=== PATIENT | female | born 1985 | race Two or more races ===

== ENCOUNTER 2017-05-13 16:47 | Emergency (ER) | payer SELFPAY ==
[~2017-05-13] VITALS: Ht 162.6 cm; Wt 81.6 kg
[2017-05-13] MEDS ORDERED: ONDANSETRON PF 4 MG/2 ML VIAL. IV ONE (17:30)
[2017-05-13] MEDS ORDERED: IV NORMAL SALINE 1000ML BAG 1,000 ML IV ONE (17:30)
[2017-05-13] MEDS ORDERED: fentaNYL PF VIAL 100 MCG/2 ML VIAL IV ONE (17:30)
[2017-05-13 17:31] LABS: BASO % 1 % (0-3); EOS % 5 % (0-3); HEMATOCRIT 33.5 % (36.0-47.0); HEMOGLOBIN 11.6 g/dL (12.0-15.5); LYMPH # 2.8 x10^3/uL (1.0-4.8); LYMPH % 38 % (24-48); MEAN CORPUSCULAR HEMOGLOBIN 29 pg (25-35); MEAN CORPUSCULAR HGB CONC 35 g/dL (31-37); MEAN CORPUSCULAR VOLUME 85 fL (79-100); MONO % 6 % (0-9); NEUT % 51 % (31-73); PLATELET COUNT 170 x10^3/uL (140-400); RED BLOOD COUNT 3.96 x10^6/uL (3.50-5.40); RED CELL DISTRIBUTION WIDTH 14.3 % (11.5-14.5); WHITE BLOOD COUNT 7.4 x10^3/uL (4.0-11.0)
[2017-05-13 17:32] LABS: BILIRUBIN,URINE NEGATIVE (NEG); GLUCOSE,URINE NEGATIVE (NEG); NITRITE,URINE NEGATIVE (NEG); PROTEIN,URINE NEGATIVE (NEG-TRACE); UROBILINOGEN,URINE 0.2 mg/dL (0.2 mg/dL)
[2017-05-13 17:39] LABS: BACTERIA,URINE FEW /HPF (0-FEW); RBC,URINE 0 /HPF (0-2); SQUAMOUS EPITHELIAL CELL,UR MANY /LPF; WBC,URINE RARE /HPF (0-4)
[2017-05-13 17:45] LABS: CALCIUM 8.8 mg/dL (8.5-10.1); CREATININE 0.8 mg/dL (0.6-1.0); GFR 83.7
[2017-05-13 17:50] LABS: ALBUMIN 3.6 g/dL (3.4-5.0); ALBUMIN/GLOBULIN RATIO 0.9 (1.0-1.7); TOTAL BILIRUBIN 0.3 mg/dL (0.2-1.0); TOTAL PROTEIN 7.7 g/dL (6.4-8.2)
--- NOTE | 2017-05-13 18:12 | ED.ADGEN ---
Past Medical History Past Medical History: No Pertinent History Past Surgical History: Appendectomy Alcohol Use: None Drug Use: None Adult General Chief Complaint Chief Complaint: ABDOMINAL PAIN HPI HPI Patient is a 31 year old female who presents with left sided pelvic pain for 2 days. Pain is worse with palpation and bowel movements. Patient reports constipation. Denies bloody stools or mucous in stools. No fever chills, nausea vomiting and sweats. Patient's last menstrual period was 4 weeks ago. Patient reports possibility of . No urinary frequency urgency or dysuria. No hematuria or history of kidney stones. Patient denies street of symptomatic ovarian cysts. No prior abdominal surgeries. Review of Systems Review of Systems ROS as per HPI. Current Medications Current Medications Current Medications Medications (Trade) Dose Ordered Sig/Boris Start Time Stop Time Status Last Admin Dose Admin Fentanyl Citrate (Fentanyl 2ml Vial) 50 mcg 1X ONCE 05/13/17 17:30 05/13/17 17:31 DC 05/13/17 17:45 50 MCG Ketorolac Tromethamine (Toradol) 30 mg 1X ONCE 05/13/17 18:15 05/13/17 18:16 DC 05/13/17 18:15 30 MG Ondansetron HCl (Zofran) 4 mg 1X ONCE 05/13/17 17:30 05/13/17 17:31 DC 05/13/17 17:45 4 MG Sodium Chloride 1,000 ml @ 1,000 mls/hr 1X ONCE 05/13/17 17:30 05/13/17 18:29 DC 05/13/17 17:45 1,000 MLS/HR Allergies Allergies Allergies Coded Allergies Type Severity Reaction Last Updated Verified Penicillins Allergy Mild hives 10/15/13 Yes acetaminophen Allergy Mild hives 10/15/13 Yes hydrocodone bit Allergy Mild hives 10/15/13 Yes Physical Exam Physical Exam Constitutional: Well developed, well nourished, no acute distress, non-toxic appearance. HENT: Normocephalic, atraumatic, bilateral external ears normal, oropharynx moist, no oral exudates, nose normal. Eyes: PERRLA, EOMI, conjunctiva normal. Neck: Normal range of motion, no tenderness. Cardiovascular:Heart rate regular rhythm, no murmur. Lungs & Thorax: Bilateral breath sounds clear to auscultation. Abdomen: Bowel sounds normal, soft, no tenderness. Skin: Warm, dry, no erythema, no rash. Back: No tenderness. Extremities: No tenderness. Neurologic: Alert and oriented X 3, normal motor function, normal sensory function, no focal deficits noted. Psychologic: Affect normal, judgement normal, mood normal. Current Patient Data Vital Signs Vital Signs Date Time Temp Pulse Resp B/P (MAP) Pulse Ox O2 Delivery O2 Flow Rate FiO2 05/13/17 17:45 16 98 Room Air 05/13/17 16:50 98.0 69 142/85 (104) 98.0 Lab Values Laboratory Tests Test 05/13/17 16:13 05/13/17 16:53 05/13/17 16:55 POC Urine HCG, Qualitative Hcg negative (Negative) Urine Collection Type Unknown Urine Color Yellow Urine Clarity Clear Urine pH 7.0 Urine Specific [place] 1.025 Urine Protein Negative mg/dL (NEG-TRACE) Urine Glucose (UA) Negative mg/dL (NEG) Urine Ketones (Stick) Negative mg/dL (NEG) Urine Blood Negative (NEG) Urine Nitrite Negative (NEG) Urine Bilirubin Negative (NEG) Urine Urobilinogen Dipstick 0.2 mg/dL (0.2 mg/dL) Urine Leukocyte Esterase Negative (NEG) Urine RBC 0 /HPF (0-2) Urine WBC Rare /HPF (0-4) Urine Squamous Epithelial Cells Many /LPF Urine Bacteria Few /HPF (0-FEW) Urine Mucus Slight /LPF White Blood Count 7.4 x10^3/uL (4.0-11.0) Red Blood Count 3.96 x10^6/uL (3.50-5.40) Hemoglobin 11.6 g/dL (12.0-15.5) L Hematocrit 33.5 % (36.0-47.0) L Mean Corpuscular Volume 85 fL (79-100) Mean Corpuscular Hemoglobin 29 pg (25-35) Mean Corpuscular Hemoglobin Concent 35 g/dL (31-37) Red Cell Distribution Width 14.3 % (11.5-14.5) Platelet Count 170 x10^3/uL (140-400) Neutrophils (%) (Auto) 51 % (31-73) Lymphocytes (%) (Auto) 38 % (24-48) Monocytes (%) (Auto) 6 % (0-9) Eosinophils (%) (Auto) 5 % (0-3) H Basophils (%) (Auto) 1 % (0-3) Neutrophils # (Auto) 3.8 x10^3uL (1.8-7.7) Lymphocytes # (Auto) 2.8 x10^3/uL (1.0-4.8) Monocytes # (Auto) 0.4 x10^3/uL (0.0-1.1) Eosinophils # (Auto) 0.4 x10^3/uL (0.0-0.7) Basophils # (Auto) 0.0 x10^3/uL (0.0-0.2) Sodium Level 141 mmol/L (136-145) Potassium Level 4.0 mmol/L (3.5-5.1) Chloride Level 105 mmol/L (98-107) Carbon Dioxide Level 28 mmol/L (21-32) Anion Gap 8 (6-14) Blood Urea Nitrogen 12 mg/dL (7-20) Creatinine 0.8 mg/dL (0.6-1.0) Estimated GFR (Cockcroft-Gault) 83.7 BUN/Creatinine Ratio 15 (6-20) Glucose Level 98 mg/dL (70-99) Calcium Level 8.8 mg/dL (8.5-10.1) Total Bilirubin 0.3 mg/dL (0.2-1.0) Aspartate Amino Transferase (AST) 18 U/L (15-37) Alanine Aminotransferase (ALT) 16 U/L (14-59) Alkaline Phosphatase 39 U/L (46-116) L C-Reactive Protein, Quantitative 1.5 mg/L (0-3.3) Total Protein 7.7 g/dL (6.4-8.2) Albumin 3.6 g/dL (3.4-5.0) Albumin/Globulin Ratio 0.9 (1.0-1.7) L Lipase 204 U/L (73-393) Laboratory Tests 05/13/17 16:55 Laboratory Tests 05/13/17 16:55 EKG EKG [] Radiology/Procedures Radiology/Procedures [] Course & Med Decision Making Course & Med Decision Making Pertinent Labs and Imaging studies reviewed. (See chart for details) [Lower quadrant pain, tenderness requiring repeat pain medication. Initial lab work unremarkable. Lethargic ultrasound ordered an ultrasound ordered due to concern of possible cyst, torsion, tubo-ovarian abscess, etc. Patient declines workup stating she prefers to go home and follow-up with ASSOCIATE PROFESSOR OF SOCIOLOGY. Given Limited evaluation, more serious diagnosis cannot be ruled out at this time. In the meantime, recommend supportive care and close [facility]OCIATE PROFESSOR OF SOCIOLOGY follow-up. She instructed to return to the ED she changes her mind regarding additional workup or return is symptoms worsen. Patient verbalizes understanding and agrees to plan. Dragon Disclaimer Dragon Disclaimer This electronic medical record was generated, in whole or in part, using a voice recognition dictation system. LILLIAN HENRY DO May 13, 2017 18:11
[2017-05-13] MEDS ORDERED: KETOROLAC TROMETHAMINE 30 MG/ML INJ. IV ONE (18:15)
[2017-05-13 18:28] VITALS: BP 124/79
== END 2017-05-13 19:02 | disposition home or self-care (01) ==
LOC: ER 16:47
DX: R10.30 Lower abdominal pain, unspecified (principal); R10.2 Pelvic and perineal pain; K59.00 Constipation, unspecified; Z88.0 Allergy status to penicillin; Z88.5 Allergy status to narcotic agent; Z88.6 Allergy status to analgesic agent
CPT/HCPCS: 36415; 80053; 81001; 81025; 83690; 85027; 86140; 96361; 96374; 96375; 99284; J1885; J2405; J3010; J7030

== ENCOUNTER 2017-06-26 11:23 | Emergency (ER) | payer SELFPAY ==
[2017-06-26 12:15] LABS: BASO % 1 % (0-3); EOS % 6 % (0-3); HEMATOCRIT 37.3 % (36.0-47.0); HEMOGLOBIN 12.4 g/dL (12.0-15.5); LYMPH # 2.8 x10^3/uL (1.0-4.8); LYMPH % 38 % (24-48); MEAN CORPUSCULAR HEMOGLOBIN 29 pg (25-35); MEAN CORPUSCULAR HGB CONC 33 g/dL (31-37); MEAN CORPUSCULAR VOLUME 87 fL (79-100); MONO % 5 % (0-9); NEUT % 51 % (31-73); PLATELET COUNT 184 x10^3/uL (140-400); RED CELL DISTRIBUTION WIDTH 13.5 % (11.5-14.5); WHITE BLOOD COUNT 7.5 x10^3/uL (4.0-11.0)
[2017-06-26 12:16] LABS: BILIRUBIN,URINE NEGATIVE (NEG); GLUCOSE,URINE NEGATIVE (NEG); NITRITE,URINE NEGATIVE (NEG); PH,URINE 7.5; PROTEIN,URINE NEGATIVE (NEG-TRACE); UROBILINOGEN,URINE 0.2 mg/dL (0.2 mg/dL)
[2017-06-26 12:24] LABS: CALCIUM 8.6 mg/dL (8.5-10.1); CREATININE 0.8 mg/dL (0.6-1.0); GFR 83.7; POTASSIUM 3.5 mmol/L (3.5-5.1)
[2017-06-26 12:25] LABS: SQUAMOUS EPITHELIAL CELL,UR MANY /LPF
[2017-06-26 12:26] LABS: BACTERIA,URINE MOD /HPF (0-FEW)
[2017-06-26 12:27] LABS: RBC,URINE 0 /HPF (0-2)
[2017-06-26 12:30] LABS: ALBUMIN 3.9 g/dL (3.4-5.0); ALBUMIN/GLOBULIN RATIO 0.9 (1.0-1.7); TOTAL BILIRUBIN 0.3 mg/dL (0.2-1.0); TOTAL PROTEIN 8.4 g/dL (6.4-8.2)
[2017-06-26] MEDS ORDERED: IV NORMAL SALINE 1000ML BAG 1,000 ML IV ONE (12:30)
[2017-06-26] MEDS ORDERED: KETOROLAC TROMETHAMINE 30 MG/ML INJ. IV ONE (12:30)
[2017-06-26] MEDS ORDERED: IOHEXOL 300 MG/ML 75 ML VIAL IV ONE (13:45)
[2017-06-26] MEDS ORDERED: CONTRAST GIVEN MC PRN (13:45)
[2017-06-26 14:10] LABS: BILIRUBIN,URINE NEGATIVE (NEG); GLUCOSE,URINE NEGATIVE (NEG); NITRITE,URINE NEGATIVE (NEG); PROTEIN,URINE NEGATIVE (NEG-TRACE); UROBILINOGEN,URINE 0.2 mg/dL (0.2 mg/dL)
--- NOTE | 2017-06-26 14:16 | RAD ---
Exam performed: CT abdomen pelvis with IV contrast. History: Left lower quadrant abdominal pain with dysuria. Date of service: 06/26/17. Comparison: None available Technique: Contiguous helical acquisitions are obtained through the abdomen and pelvis during intravenous administration of 75 cc of Omnipaque 300. Sagittal and coronal reformatted images are obtained and reviewed. Findings: The lung bases are essentially clear. Visualized heart is normal. The liver, spleen, gallbladder and pancreas appear normal. Both adrenal glands and bilateral kidneys are normal in size with symmetric excretion of contrast via both kidneys. No hydronephrosis or nephrolithiasis. Aorta is normal in caliber. No retroperitoneal or mesenteric lymphadenopathy. The small and large bowel loops are nondilated and unremarkable. Appendix is not clearly seen. No dominant changes in the right lower quadrant. There is a large 7.7 x 6.6 x 7.1 cm cyst in the left adnexa causing rightward displacement of the uterus. The urinary bladder is partially decompressed. No free fluid. Interrogation of bone windows is unremarkable. Impression: 1. Large 7.7 x 2.6 x 7.1 cm cyst in the left adnexa likely an ovarian cyst, likely physiological. 2. Scattered stool throughout the colon. Correlate clinically for constipation. PQRS Compliance Statement: One or more of the following individualized dose reduction techniques were utilized for this examination: 1. Automated exposure control 2. Adjustment of the mA and/or kV according to patient size 3. Use of iterative reconstruction technique
[2017-06-26 14:20] VITALS: BP 149/84
[2017-06-26 14:23] LABS: BACTERIA,URINE 0 /HPF (0-FEW); RBC,URINE 0 /HPF (0-2); SQUAMOUS EPITHELIAL CELL,UR OCC /LPF; WBC,URINE 0 /HPF (0-4)
--- NOTE | 2017-06-26 14:48 | PHYS DOC ---
Past Medical History Past Medical History: No Pertinent History Past Surgical History: Appendectomy Alcohol Use: None Drug Use: None Adult General Chief Complaint Chief Complaint: ABDOMINAL PAIN HPI HPI 31-year-old female with no significant past medical history now presents the emergency department complaining of left lower abdominal pain. Patient states she has mild dysuria is concerned she could've urinary tract infection. Denies vaginal discharge or bleeding. She has no history of pelvic pathology or chronic intra-abdominal problems. Patient has no vomiting or diarrhea. No prior history of kidney stones or urinary tract infection. Pain today only and she describes it is not worse with movement. Review of Systems Review of Systems Constitutional: Denies fever or chills [] Eyes: Denies change in visual acuity, redness, or eye pain [] HENT: Denies nasal congestion or sore throat [] Respiratory: Denies cough or shortness of breath [] Cardiovascular: No additional information not addressed in HPI [] GI: Denies abdominal pain, nausea, vomiting, bloody stools or diarrhea [] : Denies dysuria or hematuria [] Musculoskeletal: Denies back pain or joint pain [] Integument: Denies rash or skin lesions [] Neurologic: Denies headache, focal weakness or sensory changes [] Endocrine: Denies polyuria or polydipsia [] Current Medications Current Medications Current Medications Medications (Trade) Dose Ordered Sig/Boris Start Time Stop Time Status Last Admin Dose Admin Info (Do NOT chart on this entry -- for MONITORING) 1 each PRN DAILY PRN 06/26/17 13:45 06/28/17 13:44 Iohexol (Omnipaque 300 Mg/ml) 75 ml 1X ONCE 06/26/17 13:45 06/26/17 13:46 DC 06/26/17 13:40 75 ML Ketorolac Tromethamine (Toradol) 30 mg 1X ONCE 06/26/17 12:30 06/26/17 12:31 DC 06/26/17 12:04 30 MG Sodium Chloride 1,000 ml @ 125 mls/hr 1X ONCE 06/26/17 12:30 06/26/17 20:29 06/26/17 12:04 125 MLS/HR Allergies Allergies Allergies Coded Allergies Type Severity Reaction Last Updated Verified Penicillins Allergy Mild hives 10/15/13 Yes acetaminophen Allergy Mild hives 10/15/13 Yes hydrocodone bit Allergy Mild hives 10/15/13 Yes Physical Exam Physical Exam Well-appearing 31-year-old female no acute distress morbidly obese benign exam minimal left lower quadrant/left pelvic tenderness without guarding or rebound. Normal bowel sounds. No CVA tenderness remainder of exam is benign Constitutional: Well developed, well nourished, no acute distress, non-toxic appearance. [] HENT: Normocephalic, atraumatic, bilateral external ears normal, oropharynx moist, no oral exudates, nose normal. [] Eyes: PERRLA, EOMI, conjunctiva normal, no discharge. [] Neck: Normal range of motion, no tenderness, supple, no stridor. [] Cardiovascular:Heart rate regular rhythm, no murmur [] Lungs & Thorax: Bilateral breath sounds clear to auscultation [] Abdomen: Bowel sounds normal, soft, no tenderness, no masses, no pulsatile masses. [] Skin: Warm, dry, no erythema, no rash. [] Back: No tenderness, no CVA tenderness. [] Extremities: No tenderness, no cyanosis, no clubbing, ROM intact, no edema. [] Neurologic: Alert and oriented X 3, normal motor function, normal sensory function, no focal deficits noted. [] Psychologic: Affect normal, judgement normal, mood normal. [] Current Patient Data Vital Signs Vital Signs Date Time Temp Pulse Resp B/P (MAP) Pulse Ox O2 Delivery O2 Flow Rate FiO2 06/26/17 14:20 56 149/84 (105) 98 Room Air 06/26/17 11:29 98.5 18 98.5 Lab Values Laboratory Tests Test 06/26/17 10:43 06/26/17 11:35 06/26/17 11:36 06/26/17 14:00 POC Urine HCG, Qualitative Hcg negative (Negative) White Blood Count 7.5 x10^3/uL (4.0-11.0) Red Blood Count 4.30 x10^6/uL (3.50-5.40) Hemoglobin 12.4 g/dL (12.0-15.5) Hematocrit 37.3 % (36.0-47.0) Mean Corpuscular Volume 87 fL (79-100) Mean Corpuscular Hemoglobin 29 pg (25-35) Mean Corpuscular Hemoglobin Concent 33 g/dL (31-37) Red Cell Distribution Width 13.5 % (11.5-14.5) Platelet Count 184 x10^3/uL (140-400) Neutrophils (%) (Auto) 51 % (31-73) Lymphocytes (%) (Auto) 38 % (24-48) Monocytes (%) (Auto) 5 % (0-9) Eosinophils (%) (Auto) 6 % (0-3) H Basophils (%) (Auto) 1 % (0-3) Neutrophils # (Auto) 3.9 x10^3uL (1.8-7.7) Lymphocytes # (Auto) 2.8 x10^3/uL (1.0-4.8) Monocytes # (Auto) 0.4 x10^3/uL (0.0-1.1) Eosinophils # (Auto) 0.4 x10^3/uL (0.0-0.7) Basophils # (Auto) 0.0 x10^3/uL (0.0-0.2) Sodium Level 138 mmol/L (136-145) Potassium Level 3.5 mmol/L (3.5-5.1) Chloride Level 103 mmol/L (98-107) Carbon Dioxide Level 29 mmol/L (21-32) Anion Gap 6 (6-14) Blood Urea Nitrogen 15 mg/dL (7-20) Creatinine 0.8 mg/dL (0.6-1.0) Estimated GFR (Cockcroft-Gault) 83.7 BUN/Creatinine Ratio 19 (6-20) Glucose Level 97 mg/dL (70-99) Calcium Level 8.6 mg/dL (8.5-10.1) Total Bilirubin 0.3 mg/dL (0.2-1.0) Aspartate Amino Transferase (AST) 16 U/L (15-37) Alanine Aminotransferase (ALT) 23 U/L (14-59) Alkaline Phosphatase 47 U/L (46-116) Total Protein 8.4 g/dL (6.4-8.2) H Albumin 3.9 g/dL (3.4-5.0) Albumin/Globulin Ratio 0.9 (1.0-1.7) L Lipase 277 U/L (73-393) Urine Collection Type Void U cath Urine Color Yellow Yellow Urine Clarity Clear Clear Urine pH 7.5 7.0 Urine Specific [place] 1.010 >=1.030 Urine Protein Negative mg/dL (NEG-TRACE) Negative mg/dL (NEG-TRACE) Urine Glucose (UA) Negative mg/dL (NEG) Negative mg/dL (NEG) Urine Ketones (Stick) Negative mg/dL (NEG) Negative mg/dL (NEG) Urine Blood Negative (NEG) Negative (NEG) Urine Nitrite Negative (NEG) Negative (NEG) Urine Bilirubin Negative (NEG) Negative (NEG) Urine Urobilinogen Dipstick 0.2 mg/dL (0.2 mg/dL) 0.2 mg/dL (0.2 mg/dL) Urine Leukocyte Esterase Trace (NEG) Negative (NEG) Urine RBC 0 /HPF (0-2) 0 /HPF (0-2) Urine WBC 5-10 /HPF (0-4) 0 /HPF (0-4) Urine Squamous Epithelial Cells Many /LPF Occ /LPF Urine Bacteria Mod /HPF (0-FEW) 0 /HPF (0-FEW) Laboratory Tests 06/26/17 11:35 Laboratory Tests 06/26/17 11:35 EKG EKG [] Radiology/Procedures Radiology/Procedures CT with 7 x 7 x 7 cm left ovarian cyst. No evidence of rupture. Course & Med Decision Making Course & Med Decision Making Pertinent Labs and Imaging studies reviewed. (See chart for details) L appearing patient with left lower quadrant abdominal pain today. Labs unremarkable. Vital signs stable. Patient is very well-appearing on multiple re- exams. CT result returns with 8 x 7 x 7 cm left adnexal cyst consistent with ovarian cyst. patient is not . Urinalysis negative. Case discussed with Dr. Massey TELEMARKETING REPRESENTATIVE on-call who is aware of history and findings and agrees with ultrasound to rule out less likely possibility of torsion currently. He recommends outpatient follow-up with his office Monday at 2:30 PM. Patient will take ibuprofen as well as Magazine for use as needed. No further workup or treatment will be indicated if ultrasound Reflects no torsion. Patient agrees with outpatient follow-up and strict return precautions will be given. [] Dragon Disclaimer Dragon Disclaimer This electronic medical record was generated, in whole or in part, using a voice recognition dictation system. Departure Departure Impression: Primary Impression: Pelvic cyst Additional Impression: Pelvic pain Disposition: HOME, SELF-CARE Condition: STABLE Referrals: NO PCP (PCP) Patient Instructions: Ovarian Cyst Additional Instructions: It appears that the source of your pain today is a large pelvic cyst 8 cm x 7 cm x 7 cm. This appears to be an ovarian cyst and does not appear to be ruptured at this point. It is common for a pelvic cyst cause pain. Take ibuprofen 800 mg every 6 hours as needed for pain and use Magazine one pill every 6 hours as needed for breakthrough pain. Follow-up with Dr. Massey the TELEMARKETING REPRESENTATIVE doctor on Monday at 2:30 PM in his office. Return immediately for new severe or worsening symptoms specifically for severe pain and especially in the setting of lightheadedness and fainting or nearly fainting. Scripts Hydrocodone/Apap 5-325 (NORCO 5-325 TABLET) 1 Each Tablet 1 TAB PO PRN Q6HRS Y for PAIN, #16 TAB 0 Refills Prov: ORI REYES MD 06/26/17 Problem Qualifiers ORI REYES MD Jun 26, 2017 14:48
[2017-06-26] MEDS ORDERED: HYDR-971 PO (15:10)
--- NOTE | 2017-06-26 16:35 | RAD ---
Pelvic ultrasound including transabdominal and transvaginal imaging 06/26/2017 Clinical history: Left adnexal mass seen on CT scan from earlier today. Technique: Using the distended urinary bladder as a sonographic window, a real-time ultrasound examination of the pelvis was performed. Additionally in an attempt to better evaluate the uterus and adnexa, a transvaginal ultrasound study was performed. Multiple images were obtained. Findings: Comparison is made to patient's CT scan of the pelvis performed earlier today. The uterus is within normal limits in size and echogenicity. It measures 11.5 x 4.7 x 3.8 cm in longitudinal, transverse, and AP dimensions. No focal abnormality of the uterus is seen. The endometrial echo complex measures 8 mm in thickness which is within normal limits. Nabothian cysts are seen within the cervix which measure 3 mm to 1.2 cm in size. The right ovary is normal in size and echogenicity. It measures 3.8 x 3.4 x 2.9 cm in size. Left ovary is enlarged measuring 8.2 x 7.5 x 6.7 cm in size. Within the left ovary a complex mass is seen which measures 7.5 cm in greatest diameter. This corresponds to the abnormality seen on the patient's CT scan. It may represent a hemorrhagic cyst or possibly an endometrioma. Normal color flow and pulse Doppler imaging to both ovaries is seen. A small amount of free fluid is seen within the pelvis. Impression: 7.5 cm complex cystic mass is seen within the left ovary which corresponds to the abnormality seen on the patient's CT scan. It may represent a hemorrhagic cyst or possibly an endometrioma. Small amount of free fluid is seen within the pelvis.
== END 2017-06-26 16:47 | disposition home or self-care (01) ==
LOC: ER 11:23
DX: N94.89 Other specified conditions associated with female genital organs and menstrual cycle (principal); Z88.0 Allergy status to penicillin; Z88.6 Allergy status to analgesic agent; Z88.5 Allergy status to narcotic agent
CPT/HCPCS: 36415; 74177; 76830; 76856; 80053; 81001; 81025; 83690; 85025; 96361; 96374; 99285; J1885; J7030; Q9967

== ENCOUNTER 2017-10-10 08:55 | Emergency (ER) | payer OTHER ==
[~2017-10-10] VITALS: Ht 160 cm; Wt 81.6 kg
[~2017-10-10 08:55] MED LIST: HYDR-971 PO
--- NOTE | 2017-10-10 09:26 | PHYS DOC ---
Past Medical History Past Medical History: No Pertinent History Past Surgical History: Appendectomy Alcohol Use: None Drug Use: None Adult General Chief Complaint Chief Complaint: ABDOMINAL PAIN HPI HPI Patient is a 32 year old female with history of appendectomy who presents today complaining of moderate left low back pain radiating into the left groin that began a couple days ago. Patient states the pain is worse on palpation of the left groin. Patient denies any nausea vomiting. Denies any chance she is . Denies any unusual vaginal discharge. Denies any urgency frequency or dysuria. Review of Systems Review of Systems Constitutional: Denies fever or chills [] Eyes: Denies change in visual acuity, redness, or eye pain [] HENT: Denies nasal congestion or sore throat [] Respiratory: Denies cough or shortness of breath [] Cardiovascular: No additional information not addressed in HPI [] GI: Left groin pain. Nausea, vomiting, bloody stools or diarrhea [] : Denies dysuria or hematuria [] Musculoskeletal: Left low back pain radiating into the left groin, denies joint pain [] Integument: Denies rash or skin lesions [] Neurologic: Denies headache, focal weakness or sensory changes [] Endocrine: Denies polyuria or polydipsia [] All other systems were reviewed and found to be within normal limits, except as documented in this note. Current Medications Current Medications Current Medications Medications (Trade) Dose Ordered Sig/[facility] Start Time Stop Time Status Last Admin Dose Admin Acetaminophen (Tylenol) 500 mg 1X ONCE 10/10/17 11:15 10/10/17 11:16 DC 10/10/17 11:18 500 MG Ketorolac Tromethamine (Toradol Im) 30 mg 1X ONCE 10/10/17 09:45 10/10/17 09:47 DC 10/10/17 09:45 30 MG Ketorolac Tromethamine (Toradol) 30 mg 1X ONCE 10/10/17 09:30 10/10/17 09:31 DC Allergies Allergies Allergies Coded Allergies Type Severity Reaction Last Updated Verified Penicillins Allergy Mild hives 10/15/13 Yes acetaminophen Allergy Mild hives 10/15/13 Yes hydrocodone bit Allergy Mild hives 10/15/13 Yes Physical Exam Physical Exam Constitutional: Well developed, well nourished, no acute distress, non-toxic appearance. [] HENT: Normocephalic, atraumatic, bilateral external ears normal, oropharynx moist, no oral exudates, nose normal. [] Eyes: PERRLA, EOMI, conjunctiva normal, no discharge. [] Neck: Normal range of motion, no tenderness, supple, no stridor. [] Cardiovascular:Heart rate regular rhythm, no murmur [] Lungs & Thorax: Bilateral breath sounds clear to auscultation [] Abdomen: Tenderness on palpation of the left lower quadrant, no right upper or right lower quadrant tenderness, soft, no tenderness, no masses, no pulsatile masses. [] No CMT. Left adnexal tenderness on exam. No right adnexal tenderness. Skin: Warm, dry, no erythema, no rash. [] Back: No tenderness, no CVA tenderness. [] Extremities: No tenderness, no cyanosis, no clubbing, ROM intact, no edema. Negative bilateral straight leg raises. Neurologic: Alert and oriented X 3, normal motor function, normal sensory function, no focal deficits noted. [] Psychologic: Affect normal, judgement normal, mood normal. [] Current Patient Data Vital Signs Vital Signs Date Time Temp Pulse Resp B/P (MAP) Pulse Ox O2 Delivery O2 Flow Rate FiO2 10/10/17 11:58 62 16 132/80 (97) 99 10/10/17 09:12 98.2 Room Air 98.2 Lab Values Laboratory Tests Test 10/10/17 09:15 10/10/17 09:20 10/10/17 09:25 Urine Collection Type Unknown Urine Color Yellow Urine Clarity Clear Urine pH 6.0 Urine Specific [place] 1.015 Urine Protein Negative mg/dL (NEG-TRACE) Urine Glucose (UA) Negative mg/dL (NEG) Urine Ketones (Stick) Negative mg/dL (NEG) Urine Blood Negative (NEG) Urine Nitrite Negative (NEG) Urine Bilirubin Negative (NEG) Urine Urobilinogen Dipstick 0.2 mg/dL (0.2 mg/dL) Urine Leukocyte Esterase Negative (NEG) Urine RBC 0 /HPF (0-2) Urine WBC 0 /HPF (0-4) Urine Squamous Epithelial Cells Mod /LPF Urine Bacteria 0 /HPF (0-FEW) Urine Mucus Slight /LPF POC Urine HCG, Qualitative Hcg negative (Negative) White Blood Count 5.8 x10^3/uL (4.0-11.0) Red Blood Count 4.25 x10^6/uL (3.50-5.40) Hemoglobin 12.2 g/dL (12.0-15.5) Hematocrit 36.7 % (36.0-47.0) Mean Corpuscular Volume 86 fL (79-100) Mean Corpuscular Hemoglobin 29 pg (25-35) Mean Corpuscular Hemoglobin Concent 33 g/dL (31-37) Red Cell Distribution Width 13.3 % (11.5-14.5) Platelet Count 176 x10^3/uL (140-400) Neutrophils (%) (Auto) 51 % (31-73) Lymphocytes (%) (Auto) 37 % (24-48) Monocytes (%) (Auto) 5 % (0-9) Eosinophils (%) (Auto) 6 % (0-3) H Basophils (%) (Auto) 1 % (0-3) Neutrophils # (Auto) 2.9 x10^3uL (1.8-7.7) Lymphocytes # (Auto) 2.1 x10^3/uL (1.0-4.8) Monocytes # (Auto) 0.3 x10^3/uL (0.0-1.1) Eosinophils # (Auto) 0.4 x10^3/uL (0.0-0.7) Basophils # (Auto) 0.0 x10^3/uL (0.0-0.2) Sodium Level 139 mmol/L (136-145) Potassium Level 4.0 mmol/L (3.5-5.1) Chloride Level 102 mmol/L (98-107) Carbon Dioxide Level 29 mmol/L (21-32) Anion Gap 8 (6-14) Blood Urea Nitrogen 14 mg/dL (7-20) Creatinine 0.8 mg/dL (0.6-1.0) Estimated GFR (Cockcroft-Gault) 83.1 BUN/Creatinine Ratio 18 (6-20) Glucose Level 95 mg/dL (70-99) Calcium Level 9.1 mg/dL (8.5-10.1) Total Bilirubin 0.3 mg/dL (0.2-1.0) Aspartate Amino Transferase (AST) 19 U/L (15-37) Alanine Aminotransferase (ALT) 27 U/L (14-59) Alkaline Phosphatase 45 U/L (46-116) L Total Protein 8.0 g/dL (6.4-8.2) Albumin 3.8 g/dL (3.4-5.0) Albumin/Globulin Ratio 0.9 (1.0-1.7) L Lipase 200 U/L (73-393) Laboratory Tests 10/10/17 09:25 Laboratory Tests 10/10/17 09:25 EKG EKG [] Radiology/Procedures Radiology/Procedures []PROCEDURE: PELVIS W/TV Pelvic ultrasound, 10/10/2017: History: Left pelvic pain Transabdominal and transvaginal scans were obtained. The uterus measures 9.3 x 4.7 x 6.2 cm. There is a cluster of multiple cystic structures in the cervical region. This overall process measures approximately 3.8 x 2.2 x 3.2 cm. This may represent a cluster of nabothian cysts. Similar findings were present on the study of 06/26/2017. The central uterine echo complex measures 10 mm in greatest AP dimension. The right ovary is of normal size. There is blood flow in the right ovary. The left ovary is mildly enlarged and contains a 2.7 cm complex nodule which is predominantly solid, although a small cystic component is evident. There is internal color flow. On the previous study of 06/26/2017 there was a much larger 7.7 cm complex mass related to the left ovary. The findings suggest regression of this larger mass. The adnexal regions are otherwise unremarkable. No free fluid is evident in the pelvis. IMPRESSION: 1. Regression of the large complex left adnexal mass evident on 06/26/2017. There is currently a much smaller 2.7 cm complex nodule in the left ovary. This would favor a benign etiology such as a resolving hemorrhagic cyst or endometrioma. Further sonographic follow-up is suggested for confirmation. 2. Multicystic process in the cervix which probably represents a cluster of nabothian cysts or so-called "tunnel cluster". A neoplastic etiology cannot be excluded. Correlation with findings of a clinical pelvic exam is suggested. DICTATED and SIGNED BY: TOMASZ BULLARD MD DATE: 10/10/17 1037 CC: CORTEZ QUINTANILLA APRN; NO PCP; NON,STAFF ~ Course & Med Decision Making Course & Med Decision Making Pertinent Labs and Imaging studies reviewed. (See chart for details) Patient is in the ED with left low back pain radiating to the left groin that began couple days ago. Negative urine hCG. CBC CMP with no acute findings, urine analysis is negative for any acute findings. Pelvic ultrasound was noted for regression of her large complex adrenal mass evident on 06/26/2017 that is much smaller at 2.7 cm noted as a complex left ovarian cyst with etiology such as a resolving hemorrhagic cyst endometrioma. Further sonographic follow-up is suggested for confirmation. Patient was also noted to have- Multicystic process in the cervix which probably represents a cluster of nabothian cysts or so-called "tunnel cluster". A neoplastic etiology could not be excluded I spoke to patient at length about her results. I her provided an ENTRY SPECIALIST and requested she follows up as soon as possible. She was discharged with ibuprofen and oxycodone for pain. Dragon Disclaimer Dragon Disclaimer This electronic medical record was generated, in whole or in part, using a voice recognition dictation system. Departure Departure Impression: Primary Impression: Left ovarian cyst Disposition: HOME, SELF-CARE Condition: STABLE Referrals: NO PCP (PCP) ALTAF COLLINS Jr, MD follow up as soon as you can Patient Instructions: Ovarian Cyst, [id number] Additional Instructions: Your pelvic ultrasound was noted to have a left complex ovarian cyst and cysts in your uterus that need to be further evaluated by an ENTRY SPECIALIST as soon as you can get an appointment. Take the prescribed medicines as needed for pain. Follow -up with the provided ENTRY SPECIALIST as soon as possible. Scripts Ibuprofen (IBUPROFEN) 800 Mg Tablet 800 MG PO PRN Q6HRS Y for INFLAMMATION, #30 TAB Prov: CORTEZ QUINTANILLA APRN 10/10/17 Oxycodone/Apap 5-325 (PERCOCET 5-325 MG TABLET) 1 Each Tablet 1 TAB PO Q4-6HRS Y for PAIN, #15 TAB Prov: CORTEZ QUINTANILLA APRN 10/10/17 CORTEZ QUINTANILLA APRN Oct 10, 2017 09:26
[2017-10-10] MEDS ORDERED: KETOROLAC 30 MG/ML INJ. IV ONE (09:30)
[2017-10-10 09:31] LABS: BILIRUBIN,URINE NEGATIVE (NEG); GLUCOSE,URINE NEGATIVE (NEG); NITRITE,URINE NEGATIVE (NEG); PROTEIN,URINE NEGATIVE (NEG-TRACE); UROBILINOGEN,URINE 0.2 mg/dL (0.2 mg/dL)
[2017-10-10 09:32] LABS: BASO % 1 % (0-3); EOS % 6 % (0-3); HEMATOCRIT 36.7 % (36.0-47.0); HEMOGLOBIN 12.2 g/dL (12.0-15.5); LYMPH # 2.1 x10^3/uL (1.0-4.8); LYMPH % 37 % (24-48); MEAN CORPUSCULAR HEMOGLOBIN 29 pg (25-35); MEAN CORPUSCULAR HGB CONC 33 g/dL (31-37); MEAN CORPUSCULAR VOLUME 86 fL (79-100); MONO % 5 % (0-9); NEUT % 51 % (31-73); PLATELET COUNT 176 x10^3/uL (140-400); RED BLOOD COUNT 4.25 x10^6/uL (3.50-5.40); RED CELL DISTRIBUTION WIDTH 13.3 % (11.5-14.5); WHITE BLOOD COUNT 5.8 x10^3/uL (4.0-11.0)
[2017-10-10] MEDS ORDERED: KETOROLAC 60 MG/2 ML INJ. IM ONE (09:45)
[2017-10-10 09:48] LABS: SQUAMOUS EPITHELIAL CELL,UR MOD /LPF
[2017-10-10 09:49] LABS: BACTERIA,URINE 0 /HPF (0-FEW); RBC,URINE 0 /HPF (0-2); WBC,URINE 0 /HPF (0-4)
[2017-10-10 09:49] LABS: CALCIUM 9.1 mg/dL (8.5-10.1); CREATININE 0.8 mg/dL (0.6-1.0); GFR 83.1
[2017-10-10 09:57] LABS: ALBUMIN 3.8 g/dL (3.4-5.0); ALBUMIN/GLOBULIN RATIO 0.9 (1.0-1.7); TOTAL BILIRUBIN 0.3 mg/dL (0.2-1.0)
--- NOTE | 2017-10-10 10:56 | RAD ---
Pelvic ultrasound, 10/10/2017: History: Left pelvic pain Transabdominal and transvaginal scans were obtained. The uterus measures 9.3 x 4.7 x 6.2 cm. There is a cluster of multiple cystic structures in the cervical region. This overall process measures approximately 3.8 x 2.2 x 3.2 cm. This may represent a cluster of nabothian cysts. Similar findings were present on the study of 06/26/2017. The central uterine echo complex measures 10 mm in greatest AP dimension. The right ovary is of normal size. There is blood flow in the right ovary. The left ovary is mildly enlarged and contains a 2.7 cm complex nodule which is predominantly solid, although a small cystic component is evident. There is internal color flow. On the previous study of 06/26/2017 there was a much larger 7.7 cm complex mass related to the left ovary. The findings suggest regression of this larger mass. The adnexal regions are otherwise unremarkable. No free fluid is evident in the pelvis. IMPRESSION: 1. Regression of the large complex left adnexal mass evident on 06/26/2017. There is currently a much smaller 2.7 cm complex nodule in the left ovary. This would favor a benign etiology such as a resolving hemorrhagic cyst or endometrioma. Further sonographic follow-up is suggested for confirmation. 2. Multicystic process in the cervix which probably represents a cluster of nabothian cysts or so-called "tunnel cluster". A neoplastic etiology cannot be excluded. Correlation with findings of a clinical pelvic exam is suggested.
[2017-10-10] MEDS ORDERED: ACETAMINOPHEN 500 MG TABLET PO ONE (11:15)
[2017-10-10 11:58] VITALS: BP 132/80
[2017-10-10] MEDS ORDERED: IBUP-1060 PO (12:19)
[2017-10-10] MEDS ORDERED: OXYC-323 PO (12:19)
== END 2017-10-10 12:35 | disposition home or self-care (01) ==
LOC: ER 08:55
DX: N83.202 Unspecified ovarian cyst, left side (principal); Z90.49 Acquired absence of other specified parts of digestive tract; Z88.0 Allergy status to penicillin; Z88.6 Allergy status to analgesic agent; Z88.5 Allergy status to narcotic agent
CPT/HCPCS: 36415; 76830; 76856; 80053; 81001; 81025; 83690; 85025; 96372; 99285; J1885